=== PATIENT | female | born 1995 | race Caucasian/White ===

== ENCOUNTER 2017-02-20 10:50 | Emergency (ER) | payer OTHER ==
--- NOTE | 2017-02-20 12:17 | ED Physician Documentation ---
History of Present Illness - Stated complaint Stated Complaint: FACIAL SWELLING - Chief complaint Chief Complaint: Heent - History obtained from History obtained from: Patient (Pt states that approx 2-3 days ago she started to have bilateral upper eyelid swelling. no new exposures, no respiratory distress, no new exposures, started zyrtec and benadryl yesterday ernst minimal relief) Review of Systems Constitutional: denies: Fever, Chills Eyes: reports: Other (Bilateral upper eyelid swelling). denies: Loss of vision , Decreased vision, Photophobia, Discharge, Irritation Ears: denies: Tinnitus/ringing Nose: reports: Congestion. denies: Rhinorrhea / runny nose, Sinus pressure / pain Throat: denies: Oral lesions / sores, Sore throat, Swollen tonsils Cardiac: denies: Chest pain / pressure Respiratory: denies: Dyspnea, Cough, Wheezing GI: denies: Nausea, Vomiting, Constipation, Diarrhea : denies: Dysuria Skin: denies: Rash Musculoskeletal: denies: Neck pain PD PAST MEDICAL HISTORY - Past Medical History Past Medical History: No - Past Surgical History Past Surgical History: No - Present Medications Home Medications: Ambulatory Orders Medication Instructions Recorded Confirmed [facility] 02/20/17 predniSONE [Prednisone] 60 mg PO DAILY #9 tablet 02/20/17 - Allergies Allergies/Adverse Reactions: Allergies Allergy/AdvReac Type Severity Reaction Status Date / Time No Known Drug Allergies Allergy Verified 02/20/17 11:00 - Social History Does the pt smoke?: No Smoking Status: Never smoker PD ED PE NORMAL - Vitals Vital signs reviewed: Yes - General General: Alert and oriented X 3 - HEENT HEENT: Atraumatic, PERRL, Moist mucous membranes, Pharynx benign, Other ( Bilateral upper eyelid swelling w/o redness. minimal L>R lower eyelid swelling. ) - Neck Neck: Supple, no meningeal sign, No adenopathy - Cardiac Cardiac: RRR, No murmur - Respiratory Respiratory: No respiratory distress - Derm Derm: Normal color, Warm and dry, No rash - Extremities Extremities: No deformity - Neuro Neuro: Alert and oriented X 3 - Psych Psych: Normal mood, Normal affect Results - Vitals Vitals: Vital Signs - 24 hr 02/20/17 10:57 Temperature 36.9 C Heart Rate 94 Respiratory 18 Rate Blood Pressure 115/71 O2 Saturation 100 Oxygen O2 Source Room air PD MEDICAL DECISION MAKING - ED course Complexity details: d/w patient ED course: Pt with a reaction of unknown etiology. no indication for cellulitis, No sx for ocular involvement, no sx C/W anaphylaxis. Will send home on a short course of steroids and have her follow up with her PCM on wednesday . Departure - Departure Disposition: Home, Self Care Clinical Impression: Allergic reaction Qualifiers: Encounter type: initial encounter Qualified Code(s): T78.40XA - Allergy, unspecified, initial encounter Clinical Impression: (Ruled Out): Allergic Condition: Good Instructions: ED Allergic Reaction General Other Follow-Up: Primary,care provider [Other] Prescriptions: predniSONE [Prednisone] 60 mg PO DAILY #9 tablet Comments: Follow up with your primary care provider on Wednesday. Return to the ER for any new or worsening symptoms.
[2017-02-20 12:23] VITALS: BP 117/74
== END 2017-02-20 12:27 | disposition home or self-care (01) ==
LOC: ED 10:50
DX: T78.40XA Allergy, unspecified, initial encounter (principal); X58.XXXA Exposure to other specified factors, initial encounter
CPT/HCPCS: 99283

== ENCOUNTER 2020-08-08 09:12 | Outpatient (CLI) | payer BC | END 2020-08-08 09:13 | disposition home or self-care (01) | LOC: RT 09:12 | PROVIDERS: ATTEND Physician Assistant Medical | DX: J45.21 Mild intermittent asthma with (acute) exacerbation (principal) | CPT/HCPCS: 94060; 94729 ==